=== PATIENT | male | born 1980 | race Caucasian/White ===

== ENCOUNTER 2021-02-10 12:24 | Emergency (ER) | payer BC, SELFPAY ==
[2021-02-10 12:25] VITALS: BP 140/92; PULSE 95; RESP 20; TEMP 36.4; O2SAT 99
--- NOTE | 2021-02-10 13:45 | ED.GENADULT ---
HPI - General Adult General Chief complaint: Neck Pain/Injury Stated complaint: head and neck pain Time Seen by Provider: 02/10/21 13:44 Source: patient Mode of arrival: ambulatory Limitations: no limitations History of Present Illness HPI narrative: Patient is a 40-year-old male with a history of occipital neuralgia who presents for evaluation of headache and neck pain. Patient states he has had headache pain over the past 3 weeks. Pain described as pressure overlying his head. Wraps from back of head to front. He has had numerous CT head and CT angiography head and neck which have been negative at [facility]. Patient states that his primary care provider diagnosed him with occipital neuralgia given the pain is burning in nature and radiates from the left occipital area and to his left neck. Patient denies any current numbness or weakness. No vision changes. No nausea or vomiting. At times, patient does experience blurry vision but denies any blurry vision currently. He denies any syncope or loss of consciousness. No head trauma. No rash overlying the area. Patient was referred to a pain specialist for a possible injection but states that has not been scheduled yet. He is here seeking intervention for pain control. Patient also reports some intermittent dizziness and spinning sensation when he walks. No ear pain or discharge from the ear. Related Data Allergies Allergy/AdvReac Type Severity Reaction Status Date / Time No Known Allergies Allergy Verified 02/10/21 12:27 Review of Systems Review of Systems: Narrative: CONSTITUTIONAL: Denies fever, chills, or sweats. EYES: Denies visual changes, redness, or discharge. ENT: Denies rhinorrhea, congestion, sore throat, or otalgia. CARDIOVASCULAR: Denies chest pain, palpitations, or edema. RESPIRATORY: Denies cough or dyspnea. GASTROINTESTINAL: Denies abdominal pain, nausea, vomiting, or diarrhea. GENITOURINARY: Denies dysuria or hematuria. SKIN: Denies rash or itching. MUSCULOSKELETAL: Denies back pain, joint pain, or myalgia. NEUROLOGIC: Reports headache, left-sided neck pain, denies numbness or weakness, reports dizziness with standing, no spinning sensation PMFSH Social History Social History (Updated 02/10/21 @ 14:57 by Kylee Cassidy MD) Smoking status: Never smoker Alcohol intake: never Substance use: never Living arrangements: with family Gender identity (if verbalized by the patient): Male Exam Narrative: Exam Narrative: GENERAL: Awake, alert, conversant HEAD: Normocephalic, atraumatic. EYES: 2+ PERRLA and EOMI. no nystagmus ENT: Nares clear, no rhinorrhea or epistaxis. Mucous membranes moist. Tympanic membrane with cerumen impaction bilaterally. NECK: Supple. CHEST: No respiratory distress, breathing even and non labored HEART: Regular rate, sinus rhythm ABDOMEN:Non distended, non tender EXTREMITIES: Normal range of motion. No edema. SKIN: Warm, dry, no rash. NEURO:No focal deficits. Alert and oriented x3. Finger to nose intact bilaterally. EOMs intact without nystagmus. No facial droop/asymmetry noted bilaterally. Grimace intact. Intact sensation in face. Hearing intact bilaterally. Shoulder shrug intact. Strength 5/5 bilateral upper extremities. Strength 5/5 bilateral lower extremities. Reflexes 2+ patellar. Heel to buckner intact bilaterally. Ambulatory with a narrow base, steady gait, no ataxia. Course Vital Signs Vital signs: Vital Signs Temperature 36.4 C 02/10/21 12:25 Pulse Rate 95 02/10/21 12:25 Respiratory Rate 02/10/21 12:25 Blood Pressure 140/92 H 02/10/21 12:25 Pulse Oximetry 99 02/10/21 12:25 Temperature 36.4 C 02/10/21 12:25 Pulse Rate 95 02/10/21 12:25 Respiratory Rate 02/10/21 12:25 Blood Pressure 140/92 H 02/10/21 12:25 Pulse Oximetry 99 02/10/21 12:25 Procedures Nerve Block Nerve Block 1: Nerve block date: 02/10/21 Nerve block time: 14:58 Time out performed: Yes
[2021-02-10] MEDS: MECLIZINE HCL 25 MG TABLET PO (15:44)
[2021-02-10] MEDS: SODIUM CHLORIDE 0.9% IV 1,000 ML 999 ML IV CONT (15:50)
[2021-02-10] MEDS: KETOROLAC 15 MG/ML VIAL (*BKC) IV PUSH (15:51)
[2021-02-10 15:59] LABS: Basophils Percent Auto 0.2 % (0.2-1.2); Hematocrit 38.9 % (42.0-52.0); Hemoglobin 13.1 g/dL (14.0-18.0); Immature Granulocyte Absolute 0.01 K/mm3 (0.00-0.031); Immature Granulocyte Percent A 0.1 % (0-0.5); Lymphocytes Absolute Auto 1.59 K/mm3 (0.9-3.2); Lymphocytes Percent Auto 19.7 % (18.3-44.2); Mean Corpuscular HGB Conc 33.7 g/dl (32-36); Mean Corpuscular Hemoglobin 30.5 pg (26-34); Mean Corpuscular Volume 90.7 fl (80-100); Mean Platelet Volume 9.7 fl (7.4-10.4); Monocytes Absolute Auto 0.5 K/mm3 (0.1-0.6); Monocytes Percent Auto 5.7 % (2.6-8.5); Neutrophils Percent Auto 74.3 % (45.5-73.1); Platelet Count Result 232 k/mm3 (150-375); Red Blood Count 4.29 M/mm3 (4.6-6.20); Red Cell Distribution Width 11.8 % (11.5-14.5); White Blood Count 8.1 K/mm3 (4.5-10.0)
[2021-02-10] MEDS: MAGNESIUM SULF 2 GM/WATER 50ML 2 GM/50 ML BAG IVPB (16:04)
--- NOTE | 2021-02-10 16:05 | PC.NURSE ---
Pt refusing EKG at this time because he stated he got one on tuesday when seen in a different ER and it was fine. NOAHP oneil hollingsworth.
[2021-02-10 17:41] LABS: Alanine Aminotransferase 17 U/L (4-50); Albumin Level 4.4 g/dL (3.5-5.1); Alkaline Phosphatase 39 U/L (38-126); Anion Gap 5 mmol/L (8-16); Aspartate Amino Transferase 34 U/L (17-59); Bilirubin,Total 0.2 mg/dL (0.2-1.3); Blood Urea Nitrogen 19 mg/dL (9-20); Calcium 8.9 mg/dL (8.4-10.2); Carbon Dioxide 28 mmol/L (22-30); Chloride 104 mmol/L (98-107); Estimated CRCL calculation 115 ml/min; Estimated Glomerular Filt Rate > 60; Glucose 131 mg/dL (75-110); Sodium 137 mmol/L (137-145)
[2021-02-10 17:56] VITALS: BP 140/98; PULSE 75; RESP 16; O2SAT 100
== END 2021-02-10 17:57 | disposition home or self-care (01) ==
PROVIDERS: Emergency Provider Emergency Medicine
DX: G43.009 Migraine without aura, not intractable, without status migrainosus (principal); M54.81 Occipital neuralgia; M54.2 Cervicalgia
CPT/HCPCS: 36415; 64999; 80053; 85025; 96361; 96365; 96375; 99284; A9270; J0131; J1100; J1885; J3475; J7030